=== PATIENT | male | born 2000 | race African-American/Black ===

== ENCOUNTER 2020-08-28 16:11 | Inpatient (IN) | payer MEDICAID ==
[~2020-08-28] VITALS: Ht 182.9 cm; Wt 64.9 kg
[2020-08-28] MEDS ORDERED: ACETAMINOPHEN 325MG TABLET PO ONE (21:45)
[2020-08-28 23:08] LABS: HEMATOCRIT. 39.5 % (42.0-52.0); HEMOGLOBIN. 12.3 g/dL (14.0-18.0); MEAN CORPUSCULAR HEMOGLOBIN 22.8 pg (28.0-32.0); MEAN CORPUSCULAR VOLUME 72.9 fL (80.0-94.0); MEAN PLATELET VOLUME 9.1 fl (7.4-10.4); PLATELET 607 x1000/uL (130-400); RED BLOOD CELL COUNT 5.42 mill/uL (4.7-6.1); RED CELL DISTRIBUTION WIDTH 18.4 % (11.6-14.6)
[2020-08-28 23:18] LABS: CHLORIDE 100 mEq/L (98-107)
[2020-08-28 23:19] LABS: CLARITY URINE CLEAR (CLEAR); COLOR URINE YELLOW (YELLOW); KETONES URINE NEGATIVE (NEGATIVE); LEUKOCYTE ESTERASE URINE NEGATIVE (NEGATIVE); NITRITE URINE NEGATIVE (NEGATIVE); OCCULT BLOOD URINE NEGATIVE (NEGATIVE); PROTEIN URINE NEGATIVE (NEGATIVE); SPECIFIC GRAVITY URINE 1.021 (1.005-1.030)
[2020-08-28 23:23] LABS: INR 1.3; PARTIAL THROMBOPLASTIN TIME 38.4 sec (23.4-31.0); PROTHROMBIN TIME 13.1 sec (9.6-11.0)
[2020-08-29] MEDS ORDERED: CEFTRIAXONE 1 G PREMIX 50 ML IV ONE (02:00)
[2020-08-29] MEDS ORDERED: AZITHROMYCIN 500 MG in DEXT 5% WATER 250 ML IV ONE (02:00)
[2020-08-29 02:08] LABS: PLATELET ESTIMATE MARKEDLY INCREASED
[2020-08-29 09:09] VITALS: BP 138/77
[2020-08-29 10:42] VITALS: BP 138/77
[2020-08-29] MEDS ORDERED: ONDANSETRON HCL 4MG/2ML INJ IV PRN (11:30)
[2020-08-29] MEDS ORDERED: CEFTRIAXONE 1 G PREMIX 50 ML IV SCH (11:30)
[2020-08-29 12:00] VITALS: BP 119/66
[2020-08-29] MEDS: ENOXAPARIN 40MG/0.4ML SYR SUBCUT SCH (12:56)
[2020-08-29 16:00] VITALS: BP 115/65
[2020-08-29 20:00] VITALS: BP 119/74
[2020-08-29 21:57] VITALS: BP 119/74
[2020-08-30] VITALS (8 sets, daily range): BP systolic 114–134; BP diastolic 63–81
[2020-08-30] MEDS: CEFTRIAXONE 1,000 MG in DEXTROSE 5% WATER 50 ML IV SCH (02:12)
[2020-08-30] MEDS: ACETAMINOPHEN 325MG TABLET PO PRN ×2 (04:37→15:39)
[2020-08-30 06:26] LABS: HEMATOCRIT. 32.5 % (42.0-52.0); HEMOGLOBIN. 10.5 g/dL (14.0-18.0); MEAN CORPUSCULAR HEMOGLOBIN 23.3 pg (28.0-32.0); PLATELET 560 x1000/uL (130-400); RED BLOOD CELL COUNT 4.51 mill/uL (4.7-6.1)
[2020-08-30 06:27] LABS: CHLORIDE 100 mEq/L (98-107)
[2020-08-30] MEDS: ENOXAPARIN 40MG/0.4ML SYR SUBCUT SCH (09:21)
[2020-08-30] MEDS: AZITHROMYCIN 250 MG TABLET PO SCH (09:21)
[2020-08-30 12:03] LABS: PLATELET ESTIMATE INCREASED
[2020-08-30] MEDS ORDERED: IOHEXOL-300 100 ML BOTTLE ONE (13:38)
[2020-08-31] VITALS: BP 106/43
[2020-08-31] MEDS: CEFTRIAXONE 1,000 MG in DEXTROSE 5% WATER 50 ML IV SCH (01:21)
[2020-08-31 04:00] VITALS: BP 116/65
[2020-08-31 07:11] LABS: HIV SCREEN 4G Non Reactive (Non Reactive)
[2020-08-31 08:00] VITALS: BP 115/64
[2020-08-31] MEDS: AZITHROMYCIN 250 MG TABLET PO SCH (09:00)
[2020-08-31 09:06] LABS: IMMUNOGLOBULIN A 351 mg/dL (90-386); IMMUNOGLOBULIN G 1767 mg/dL (603-1613); IMMUNOGLOBULIN M 95 mg/dL (20-172)
[2020-08-31 10:07] LABS: HEMATOCRIT. 34.1 % (42.0-52.0); HEMOGLOBIN. 10.9 g/dL (14.0-18.0); MEAN CORPUSCULAR HEMOGLOBIN 22.9 pg (28.0-32.0); MEAN CORPUSCULAR VOLUME 71.9 fL (80.0-94.0); MEAN PLATELET VOLUME 9.1 fl (7.4-10.4); PLATELET 611 x1000/uL (130-400); RED BLOOD CELL COUNT 4.74 mill/uL (4.7-6.1); RED CELL DISTRIBUTION WIDTH 18.1 % (11.6-14.6)
[2020-08-31 10:11] LABS: CHLORIDE 99 mEq/L (98-107)
[2020-08-31] MEDS ORDERED: SODIUM BICARBONATE 4% (2.4MEQ) 5ML VIAL IV ONE (10:30)
[2020-08-31] MEDS ORDERED: LIDOCAINE HCL 1% 20ML VIAL (Pyxis) INJ ONE (10:30)
[2020-08-31 12:00] VITALS: BP 120/79
[2020-08-31 12:38] VITALS: BP 120/79
[2020-08-31 13:06] LABS: ANTI-NUCLEAR ANTIBODIES DIRECT Negative (Negative)
[2020-08-31 23:13] LABS: PLATELET ESTIMATE INCREASED
[2020-09-03 13:07] LABS: HGB A 98.2 % (96.4-98.8); HGB A2 1.8 % (1.8-3.2)
[2020-09-06 12:13] LABS: DIRECTOR REVIEW Comment: (.); FISH RESULTS Comment: (.)
== END 2020-08-31 13:30 | disposition home or self-care (01) | DRG 136 ==
LOC: ER 16:11 → 7EST 08-29 01:50 → EDBEDREQTM 08-29 01:53 → EDBEDREQ 08-29 01:53 → EDBEDREQDT 08-29 01:53 → EDBEDREQSVC 08-29 01:53 → ENRESERV 08-29 07:35 → 5WST 08-29 22:45
PROVIDERS: ADMIT Internal Medicine; ATTEND Internal Medicine
PROC: 0PBB3ZX Excision of Left Clavicle, Percutaneous Approach, Diagnostic (ICD-10-PCS; principal; 2020-08-31)
DX: C38.1 Malignant neoplasm of anterior mediastinum (principal); C94.6 Myelodysplastic disease, not elsewhere classified; E78.1 Pure hyperglyceridemia; R59.0 Localized enlarged lymph nodes; Z20.828 Contact with and (suspected) exposure to other viral communicable diseases; E87.1 Hypo-osmolality and hyponatremia; Z79.2 Long term (current) use of antibiotics; D50.9 Iron deficiency anemia, unspecified
CPT/HCPCS: 36415; 70491; 71045; 71260; 74160; 76942; 80048; 80053; 81003; 82784; 83021; 83605; 83615; 83880; 84145; 84484; 85025; 85651; 85660; 86038; 86140; 86334; 86880; 87389; 87635; 88305; 93005; 99285; J0456; J0696; J1650; J3490; J7060; Q9967